=== PATIENT | female | born 1935 | race Caucasian/White ===

== ENCOUNTER → 2018-10-25 | Outpatient (CLI) | payer MEDICARE, BC ==
--- NOTE | 2018-10-25 14:50 | CT ---
EXAMINATION TYPE: CT pelvis wo con DATE OF EXAM: 10/25/2018 COMPARISON: Whole-body bone scan July 06, 2015. Left hip x-ray February 25, 2015 HISTORY: Left hip pain assess for occult fracture per order. CT DLP: 667.4 mGycm Automated exposure control for dose reduction was used. Scanning of the pelvis is performed. FINDINGS: Osseous structures are demineralized. Metallic hardware from left hip arthroplasty is only partially imaged. This causes streak artifact somewhat limiting evaluation of pelvic structures. No acute fract ure or dislocation is seen. There is mild to moderate axial joint space loss in right hip with mild a cetabular spurring. Sacroiliac joints are felt symmetric and within normal limits with vacuum disc ph enomenon. Pubic symphysis shows mild to moderate narrowing and subchondral cystic change. No suspicio us widening is present. Sacrum and coccyx are intact. Visualized lower lumbar spine shows multilevel moderate disc space narrowing with vacuum disc phenomenon and mild anterior spurring, facet arthropat hy is present. Diverticula are seen in the visualized left and sigmoid colon without CT evidence for acute diverticu litis. No suspicious bowel dilatation is seen. Uterus is surgically absent or markedly atrophic. No c oncerning pelvic fluid collection is seen. No suspicious pelvic adenopathy is noted. No groin hernia or adenopathy is seen. IMPRESSION: NO ACUTE FRACTURE OR DISLOCATION IN PELVIS IS PRESENT
== END ==
LOC: RADCTMAIN 14:14
PROVIDERS: ATTEND Physical Medicine & Rehabilitation
DX: M25.552 Pain in left hip (principal)
CPT/HCPCS: 72192

== ENCOUNTER 2020-07-19 07:51 | Day surgery (SDC) | payer MEDICARE, BC ==
[2020-07-18 08:55] VITALS: BMI 28.5
[~2020-07-19 07:51] MED LIST: ALPRAZolam 0.25 MG TAB PO PRN; ALPRAZolam 0.5 MG TAB PO PRN; ASPIRIN 325 MG TAB PO STA; ATORVASTATIN 80 MG TAB PO STA; NITROGLYCERIN SL TABS 0.4 MG TAB SUBLINGUAL PRN; SODIUM CHLORIDE 0.9% 1,000 ML in EMPTY BAG 1 BAG IV ONE
[2020-07-19] MEDS ORDERED: SODIUM CHLORIDE 0.9% 1,000 ML IV ONE (08:15)
[2020-07-19 08:42] VITALS: TEMP 97.8
[2020-07-19 09:14] LABS: Basophils # (A) 0.1 k/uL (0-0.2); Basophils % (A) 1 %; Eosinophils # (A) 0.1 k/uL (0-0.7); Eosinophils % (A) 1 %; HGB 14.3 gm/dL (11.4-16.0); Lymphocytes # (A) 1.6 k/uL (1.0-4.8); Lymphocytes % (A) 25 %; MCH 30.6 pg (25.0-35.0); MCHC 33.2 g/dL (31.0-37.0); MCV 92.1 fL (80.0-100.0); Mean Platelet Volume 8.2; Monocytes # (A) 0.4 k/uL (0-1.0); Monocytes % (A) 6 %; Neutrophils # (A) 4.3 k/uL (1.3-7.7); Neutrophils % (A) 66 %; Platelet Count 185 k/uL (150-450); RBC 4.67 m/uL (3.80-5.40); RDW 13.1 % (11.5-15.5); WBC 6.6 k/uL (3.8-10.6)
[2020-07-19 09:24] LABS: Calcium 9.6 mg/dL (8.4-10.2); Potassium 3.9 mmol/L (3.5-5.1)
[2020-07-19] MEDS ORDERED: MIDAZOLAM 2 MG/2 ML VIAL IV ONE (10:46)
[2020-07-19] MEDS ORDERED: fentaNYL (PF) 50 MCG/ML 2 ML AMP IV ONE (10:46)
[2020-07-19] MEDS ORDERED: LIDOCAINE 1% INJ 10MG/ML (20 ML MDV) SQ ONE ×2 (10:48→10:58)
[2020-07-19] MEDS ORDERED: VERAPAMIL SYRINGE (5 MG/10 ML) INTRAARTER ONE (10:52)
--- NOTE | 2020-07-19 11:33 | P.CARDCATH ---
Date of Procedure: 07/19/20 Preoperative Diagnosis: Impressions sweating and shortness of breath, positive stress test Postoperative Diagnosis: Borderline lesion in the mid LAD Procedure(s) Performed: Left heart catheterization without left ventriculography Description of Procedure: HISTORY: This is a 84-year-old female with history of hypertension and SVT has been experiencing exertional sweating and palpitations. Patient had a stress correlation study which showed evidence of ischemia in the first septal and lateral wall area. Patient is advised to have cardiac catheterization for definitive diagnosis CONSENT:I have discussed the risks, benefits and alternative therapies for the above-mentioned procedure and for both sedation/analgesia as well as necessary blood product administration, if indicated, as they pertain to this patient. The patient has indicated understanding and acceptance of the risks and procedures discussed. PROCEDURE: Patient was brought to the lab in a fasting state. Patient was given some IV sedation. The right wrist is infiltrated with lidocaine. Right radial artery was entered using Seldinger technique and a 6-Slovenian introducer sheath was advanced. Attempts were made to advance the wire resulted in difficulties. The procedure was abandoned and the was performed from the groin. The right groin is infiltrated with lidocaine and right femoral artery was entered using Seldinger technique. A 6-Slovenian catheter was left in place and selective coronary arteriography was performed. Patient tolerated the procedure well. No immediate complications were noted and patient is waiting to have FFR to assess the significance of the lesion in the mid LAD Conscious Sedation: Versed 0.5mg Fentanyl 12.5 g Duration 28minutes HEMODYNAMICS: The aortic pressure is 112/40. Left ventricle end-diastolic p ressure is 20. There was no gradient across the aortic valve SELECTIVE CORONARY ARTERIOGRAPHY: LEFT MAIN: Normal length and free of occlusive disease THE LEFT ANTERIOR DESCENDING CORONARY ARTERY: . This is a good caliber vessel giving rise good-sized diagonal branch. After origin of the diagonal branch. The LAD has diffuse disease with areas of about 60-70% stenosis 2. THE LEFT CIRCUMFLEX AND IS CORONARY ARTERY: This is a good caliber vessel free of any significant occlusive disease THE RIGHT CORONARY ARTERY: . This is a good caliber vessel giving rise good-sized PDA and PLV. Free of any occlusive disease LEFT VENTRICULOGRAPHY: . Not performed FINAL IMPRESSION: . Borderline lesion in the LAD beyond the origin of the diagonal branch PLAN: . FFR to assess the significance it. If it is significant, consider stent placement PROGNOSIS: Fair
[2020-07-19] MEDS ORDERED: IOPAMIDOL-370 125ML BTL INJ ONE (11:53)
[2020-07-19] MEDS ORDERED: RX INFO: IV CONTRAST WAS GIVEN 1 EACH MISC MISCELLANE PRN (12:06)
[2020-07-19 16:26] VITALS: PULSE 55; RESP 18
[2020-07-19 17:14] VITALS: BP 118/72
--- NOTE | 2020-07-19 21:33 | P.PRCINT ---
Percutaneous Coronary Int. - Percutaneous Coronary Intervention Percutaneous Coronary Intervention: Description of Procedure: Procedures performed: Left coronary angiography, iFR of mid LAD. INDICATION: SOB with dyspnea on exertion HISTORY: Patient is a 84 year old female who has been experiencing MAYES and had a stress test which was concerning for lateral ischemia. She had a diagnostic catheterization which showed moderate 50% LAD stenosis and therefore I was asked to perform iFR of the LAD. PROCEDURE: After the risks, benefits and alternatives of the above mentioned procedure explained in detail with the patient, informed consent was obtained. Patient was already in the catheterization lab and prepped and draped in usual fashion. A 6Fr sheath had already been placed in the right femoral artery. A decision was made to iFR the LAD. A 6Fr CLS 3.5 guide catheter was used to engage the left main. A 0.014 iFR pressure guide wire was advanced into the left main and normalized. The wire was then advanced distal to the lesion and iFR was measured at 0.91. The wire and the guide were then removed. A right femoral angiogram showed inadequate anatomy for closure and therefore the sheath was pulled and manual pressure was held with hemostasis achieved. The patient tolerated the procedure well. Patient was transported back to the post catheterization holding area in stable condition. Conscious Sedation: Patient was monitored under the direct supervision of vision of myself for conscious sedation using Versed and fentanyl for a total duration of 16 minutes HEMODYNAMICS: Aortic pressure 134/76 SELECTIVE CORONARY ANGIOGRAPHY: LEFT MAIN: The left main is a large caliber vessel which bifurcates into the LAD and circumflex. There is no significant stenosis. LEFT ANTERIOR DESCENDING CORONARY ARTERY: LAD is a large caliber vessel which wraps around to the apex. There is a mid LAD 50% stenosis. LEFT CIRCUMFLEX CORONARY ARTERY: Left circumflex is a moderate caliber vessel with no significant disease. RIGHT CORONARY ARTERY: Was not imaged, see diagnostic catheterization for full details. Conclusions: 1. Coronary artery disease as described above with iFR of mid LAD being normal at 0.91. Plan: 1. Aggressive risk factor modification per most recent ACC/AHA guidelines. 2. Followup with primary tire service technician in 1-2 weeks.
== END 2020-07-19 17:14 | disposition home or self-care (01) ==
LOC: CATHCVL 07:51
PROVIDERS: ATTEND Internal Medicine Cardiovascular Disease
DX: I25.10 Atherosclerotic heart disease of native coronary artery without angina pectoris (principal); R94.39 Abnormal result of other cardiovascular function study; R61 Generalized hyperhidrosis; R06.02 Shortness of breath; R00.2 Palpitations; R07.89 Other chest pain; I47.1 Supraventricular tachycardia; I10 Essential (primary) hypertension; E66.9 Obesity, unspecified; Z79.899 Other long term (current) drug therapy; Z68.29 Body mass index [BMI] 29.0-29.9, adult
CPT/HCPCS: 93571; 93458; 80048; 85025; C1887; C1769 ×4; C1894 ×2; J2250; J2001; J3010; J1644; Q9967

== ENCOUNTER 2024-01-08 18:24 | Inpatient (IN) | payer MEDICARE, BC ==
[2024-01-08] MEDS: MORPHINE SULFATE 4 MG/ML SYRINGE IM STA (20:01)
--- NOTE | 2024-01-08 21:02 | XR ---
EXAMINATION TYPE: XR Hip LT and AP Pelvis DATE OF EXAM: 01/08/2024 8:14 PM CLINICAL INDICATION:Female, 88 years old with history of fall, pain; PHH COMPARISON: None. TECHNIQUE: The left hip was examined in the frontal and lateral projections and a AP pelvis. FINDINGS: Bones appear slightly demineralized. This and body habitus limits assessment. Lucencies consistent with acute minimally displaced fractures of the left superior and inferior pubic rami. Pelvis otherwise appears intact. Mild right hip arthropathy. 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 No evidence of hardware failure or perihardware lucency. No proximal femoral fr acture. No dislocation. Partially seen degenerative changes of the lower lumbar spine with mild apex right curvature and fixa tion hardware at L3 and L2. IMPRESSION: 1. Acute, mildly displaced left superior and inferior pubic rami fractures. 2. Unremarkable left hip arthroplasty.
[2024-01-08] MEDS: MORPHINE SULFATE 4 MG/ML SYRINGE IVP STA (21:40)
[2024-01-08] MEDS ORDERED: NALOXONE 0.4 MG/ML 1 ML VIAL IV PRN (21:41)
--- NOTE | 2024-01-08 21:41 | ED ---
Fall HPI - General Chief Complaint: Fall Stated Complaint: Fall Time Seen by Provider: 01/08/24 19:00 Source: patient - History of Present Illness Initial Comments: 88-year-old female presents to the emergency department after she had a fall. States that she was coming into the house from the garage. Her leg gave out on her and she fell onto her left hip. She does have history of previous hip replacement by a surgeon who is now retired. She is concerned about the hip hardware. She denies any numbness, tingling or weakness into her extremities. She denies hitting her head. No loss of consciousness. Patient was offered pain medications by EMS however she refused at the time. She denies any knee or ankle pain. No other alleviating, precipitating or modifying factors - Related Data Home Medications Medication Instructions Recorded Confirmed atenoloL [Tenormin] 25 mg PO DAILY 10/10/15 01/08/24 Losartan Potassium 100 mg PO DAILY 07/18/20 01/08/24 hydroCHLOROthiazide 25 mg PO DAILY 07/18/20 01/08/24 Acetaminophen Tab [Tylenol Tab] 1,000 mg PO DAILY 01/08/24 01/08/24 Aspirin EC [Ecotrin Low Dose] 81 mg PO HS 01/08/24 01/08/24 Biotin 2,500 mcg PO HS 01/08/24 01/08/24 Isosorbide Mononitrate ER [Imdur] 30 mg PO DAILY 01/08/24 01/08/24 Rosuvastatin [Crestor] 10 mg PO HS 01/08/24 01/08/24 Allergies Allergy/AdvReac Type Severity Reaction Status Date / Time amoxicillin trihydrate Allergy Unknown Verified 01/08/24 20:42 [From Amoxil] levofloxacin [From Levaquin] AdvReac Unknown Verified 01/08/24 20:42 Review of Systems ROS Statement: Those systems with pertinent positive or pertinent negative responses have been documented in the HPI. ROS Other: All systems not noted in ROS Statement are negative. Past Medical History Past Medical History: Deep Vein Thrombosis (DVT), Hypertension, Osteoarthritis (OA), Pneumonia Additional Past Medical History / Comment(s): Hx DVT right leg in -unknown cause. History of Any Multi-Drug Resistant Organisms: None Reported Past Surgical History: Back Surgery, Hysterectomy, Joint Replacement, Tonsillectomy Additional Past Surgical History / Comment(s): Total left knee replacement, left hip replacement, TIMMY CATARACTS, RECTOCELE REPAIR. Past Anesthesia/Blood Transfusion Reactions: No Reported Reaction Past Psychological History: No Psychological Hx Reported Smoking Status: Never smoker Past Alcohol Use History: None Reported Past Drug Use History: None Reported - Past Family History Mother Family Medical History: Cancer Additional Family Medical History / Comment(s): KIDNEY CANCER. General Exam Limitations: no limitations General appearance: alert, in no apparent distress Head exam: Present: atraumatic, normocephalic, normal inspection Eye exam: Present: normal appearance, PERRL, EOMI. Absent: scleral icterus, conjunctival injection, periorbital swelling ENT exam: Present: normal exam, mucous membranes moist Neck exam: Present: normal inspection. Absent: tenderness, meningismus, lymphadenopathy Respiratory exam: Present: normal lung sounds bilaterally. Absent: respiratory distress, wheezes, rales, rhonchi, stridor Cardiovascular Exam: Present: regular rate, normal rhythm, normal heart sounds. Absent: systolic murmur, diastolic murmur, rubs, gallop, clicks GI/Abdominal exam: Present: soft, normal bowel sounds. Absent: distended, tenderness, guarding, rebound, rigid Extremities exam: Present: tenderness (To palpation of the left hip. She cannot flex at the left hip due to pain. She has intact DP and PT pulses. Intact sensation over the medial, lateral and dorsal aspects of the bilateral lower extremities. Compartments are soft), normal capillary refill. Absent: pedal edema, joint swelling, calf tenderness Back exam: Present: normal inspection Neurological exam: Present: alert, oriented X3, CN II-XII intact Psychiatric exam: Present: normal affect, normal mood Skin exam: Present: warm, dry, intact, normal color. Absent: rash Course Vital Signs 01/08/24 01/08/24 01/08/24 18:28 22:06 22:28 Temperature 97.6 F 98.2 F Pulse Rate 63 68 66 Respiratory 18 16 16 Rate Blood Pressure 165/68 121/67 O2 Sat by Pulse 96 95 Oximetry 01/08/24 23:00 Temperature Pulse Rate 64 Respiratory 14 Rate Blood Pressure O2 Sat by Pulse Oximetry Medical Decision Making - Medical Decision Making Was pt. sent in by a medical professional or institution (, PA, BUTTONHOLE MACHINE OPERATOR, urgent care, hospital, or senior care...) When possible be specific @ -No Did you speak to anyone other than the patient for history (EMS, parent, family, police, friend...)? What history was obtained from this source @ -Spoke with EMS for history Did you review nursing and triage notes (agree or disagree)? Why? @ -I reviewed and agree with nursing and triage notes Were old charts reviewed (outside hosp., previous admission, EMS record, old EKG, old radiological studies, urgent care reports/EKG's, senior care records)? Report findings @ -No old charts were reviewed Differential Diagnosis (chest pain, altered mental status, abdominal pain women, abdominal pain men, vaginal bleeding, weakness, fever, dyspnea, syncope, headache, dizziness, GI bleed, back pain, seizure, CVA, palpatations, mental health, musculoskeletal)? @ -Differential Musculoskeletal Muscular strain, contusion, ligament sprain, fracture, arthritis, septic arthritis, bursitis, cellulitis, muscle spasm, nerve compression, DVT, arterial occlusion, herpes zoster, electrolyte abnormality, tumor.... This is not meant to be in all inclusive list EKG interpreted by me (3pts min.). @ -Not done X-rays interpreted by me (1pt min.). @ -Yes and demonstrates acute pubic bone fractures CT interpreted by me (1pt min.). @ -None done U/S interpreted by me (1pt. min.). @ -None done What testing was considered but not performed or refused? (CT, X-rays, U/S, labs)? Why? @ -None What meds were considered but not given or refused? Why? @ -None Did you discuss the management of the patient with other professionals (professionals i.e. , PA, BUTTONHOLE MACHINE OPERATOR, lab, RT, psych nurse, social work professor, plug cutter, teacher, security officer, showcase trimmer)? Give summary @ -Spoke with Tanner Candelario. He was agreeable to admission if medicine refused Was smoking cessation discussed for >3mins.? @ -No Was critical care preformed (if so, how long)? @ -No Were there social determinants of health that impacted care today? How? (Homelessness, low income, unemployed, alcoholism, drug addiction, transportation, low edu. Level, literacy, decrease access to med. care, skilled nursing, rehab)? @ -No Was there de-escalation of care discussed even if they declined (Discuss DNR or withdrawal of care, Hospice)? DNR status @ -No What co-morbidities impacted this encounter? (DM, HTN, Smoking, COPD, CAD, Cancer, CVA, ARF, Chemo, Hep., AIDS, mental health diagnosis, sleep apnea, mor bid obesity)? @ -None Was patient admitted / discharged? Hospital course, mention meds given and ro hoopa, prescriptions, significant lab abnormalities, going to OR and other pertinent info. @ -Upon arrival patient was seen and evaluated in room 33. Thorough history and physical exam was performed. Patient was given 4 mg of IM morphine. X-ray was performed which demonstrates superior and inferior pubic fractures. Patient was then given a dose of Dilaudid. Continues to have pain and is not am bulatory. Because of this I did recommend admission for pain control. Spoke with Tanner Palomino. Does recommend CT of her pelvis. Was agreeable to admission if medicine refused. States that the patient is nonsurgical. I called and spoke with Tyler from [facility] who did agree to the admission. Orthopedics will be placed on consult Undiagnosed new problem with uncertain prognosis? @ -No Drug Therapy requiring intensive monitoring for toxicity (Heparin, Nitro, Insulin, Cardizem)? @ -No Were any procedures done? @ -No Diagnosis/symptom? @ -Acute fall, acute left hip pain, acute superior and inferior pubic rami fractures Acute, or Chronic, or Acute on Chronic? @ -Acute Uncomplicated (without systemic symptoms) or Complicated (systemic symptoms)? @ -Complicated Side effects of treatment? @ -No Exacerbation, Progression, or Severe Exacerbation? @ -No Poses a threat to life or bodily function? How? (Chest pain, [place], [place], pneumonia, PE, COPD, DKA, ARF, appy, cholecystitis, CVA, Diverticulitis, Homicidal, Suicidal, threat to staff... and all critical care pts) @ -No - Lab Data Result diagrams: 01/08/24 21:37 01/08/24 21:37 Lab Results 01/08/24 01/08/24 Range/Units 21:37 21:37 WBC 11.7 H (3.8-10.6) k/uL RBC 4.11 (3.80-5.40) m/uL Hgb 12.8 (11.4-16.0) gm/dL Hct 39.6 (34.0-46.0) % MCV 96.4 (80.0-100.0) fL MCH 31.2 (25.0-35.0) pg MCHC 32.4 (31.0-37.0) g/dL RDW 14.1 (11.5-15.5) % Plt Count 141 L (150-450) k/uL MPV 8.6 Neutrophils % 85 % Lymphocytes % 11 % Monocytes % 3 % Eosinophils % 0 % Basophils % 0 % Neutrophils # 9.9 H (1.3-7.7) k/uL Lymphocytes # 1.3 (1.0-4.8) k/uL Monocytes # 0.4 (0-1.0) k/uL Eosinophils # 0.1 (0-0.7) k/uL Basophils # 0.0 (0-0.2) k/uL Sodium 138 (137-145) mmol/L Potassium 4.1 (3.5-5.1) mmol/L Chloride 105 (98-107) mmol/L Carbon Dioxide 26 (22-30) mmol/L Anion Gap 7 mmol/L BUN 27 H (7-17) mg/dL Creatinine 0.92 (0.52-1.04) mg/dL Est GFR (CKD-EPI)AfAm 65 (>60 ml/min/1.73 sqM) Est GFR (CKD-EPI)NonAf 57 (>60 ml/min/1.73 sqM) Glucose 109 H (74-99) mg/dL Calcium 9.6 (8.4-10.2) mg/dL Total Bilirubin 1.0 (0.2-1.3) mg/dL AST 33 (14-36) U/L ALT 27 (4-34) U/L Alkaline Phosphatase 80 (38-126) U/L Total Protein 6.3 (6.3-8.2) g/dL Albumin 3.9 (3.5-5.0) g/dL Disposition Clinical Impression: Fall, Inferior pubic ramus fracture, Fracture of superior pubic ramus Disposition: ADMITTED IP TO THIS [facility] Condition: Stable Is patient prescribed a controlled substance at d/c from ED?: No Time of Disposition: 21:40 Decision to Admit Reason: Admit from EC Decision Date: 01/08/24 Decision Time: 21:40
[2024-01-08 21:53] LABS: Basophils % (A) 0 %; Eosinophils # (A) 0.1 k/uL (0-0.7); Eosinophils % (A) 0 %; HCT 39.6 % (34.0-46.0); HGB 12.8 gm/dL (11.4-16.0); Lymphocytes # (A) 1.3 k/uL (1.0-4.8); Lymphocytes % (A) 11 %; MCH 31.2 pg (25.0-35.0); MCHC 32.4 g/dL (31.0-37.0); MCV 96.4 fL (80.0-100.0); Mean Platelet Volume 8.6; Monocytes # (A) 0.4 k/uL (0-1.0); Monocytes % (A) 3 %; Neutrophils # (A) 9.9 k/uL (1.3-7.7); Neutrophils % (A) 85 %; Platelet Count 141 k/uL (150-450); RBC 4.11 m/uL (3.80-5.40); RDW 14.1 % (11.5-15.5); WBC 11.7 k/uL (3.8-10.6)
[2024-01-08] MEDS: HYDROmorphone 0.5 MG/0.5 ML SYRINGE IVP STA (22:01)
[2024-01-08] MEDS: KETOROLAC 15 MG/ML 1 ML VIAL IVP STA (22:02)
[2024-01-08 22:12] LABS: ALT 27 U/L (4-34); AST 33 U/L (14-36); African American GFR (CKD) 65 (>60 ml/min/1.73 sqM); Albumin 3.9 g/dL (3.5-5.0); Alkaline Phosphatase 80 U/L (38-126); Anion Gap 7 mmol/L; Blood Urea Nitrogen 27 mg/dL (7-17); Calcium 9.6 mg/dL (8.4-10.2); Carbon Dioxide 26 mmol/L (22-30); Chloride 105 mmol/L (98-107); Glucose 109 mg/dL (74-99); Non-African American GFR(CKD) 57 (>60 ml/min/1.73 sqM); Potassium 4.1 mmol/L (3.5-5.1); Sodium 138 mmol/L (137-145); Total Protein 6.3 g/dL (6.3-8.2)
--- NOTE | 2024-01-08 23:10 | CT ---
EXAMINATION TYPE: CT pelvis wo con CT DLP: 712.5 mGycm, Automated exposure control for dose reduction was used. DATE OF EXAM: 01/08/2024 10:06 PM COMPARISON: Same day pelvis and left hip radiographs. CT pelvis 10/25/2018 CLINICAL INDICATION:Female, 88 years old with history of pubic fractures; Fall, pubic fx's on prior X R. TECHNIQUE: Noncontrast CT of the pelvis was performed with multiplanar reformats generated. 3-D surface rendered rotational images of the bones generated on a remote workstation. Contrast used: mL of , (none if empty) Oral contrast used: without Oral Contrast (none if empty) FINDINGS: Osseous mineralization appears somewhat diminished. Small sclerotic density in the proximal right fem ur likely bone island. No destructive osseous lesion is seen. Partially seen degenerative changes of the lower lumbar spine. Acute essentially nondisplaced fracture extending through the left sacral ala. This may or may not ex tend to the SI joint but there is no evidence of joint space widening. Iliac bones are intact. Acute, mildly displaced fracture of the left superior pubic ramus. This appears mildly comminuted tow ards the symphysis, with some linear extension laterally along the ramus. Acute nondisplaced fractures of the left inferior pubic ramus, x2. One of these appears closer to th e pubic symphysis, the other is about 3 cm more lateral. Left hip arthroplasty appears normally articulating with the bony acetabulum, which appears intact. N o evidence of hardware failure or perihardware lucency. There are a few dystrophic soft tissue calcifications about the left hip with overlying soft tissue c hanges likely result of the previous hip replacement, but superimposed contusion would be difficult t o exclude. The right hemipelvis appears intact. There are mild degenerative changes of the pubic symphysis and r ight hip. No hip fracture or dislocation is seen. Within the pelvis, no free fluid is seen. The bladder appears grossly intact, there is mild mass effe ct upon its left mid to inferior aspect due to the extraperitoneal hematoma. There are multiple distal colonic diverticuli without signs of diverticulitis. No adenopathy visualiz ed. Normal appendix. Uterus and ovaries not seen, correlate with surgical history. Asymmetric density about the left pubic bone fractures, likely involving the musculature, consistent with mild to moderate extraperitoneal hematoma. IMPRESSION: 1. Acute nondisplaced fracture of the left sacral ala. This may or may not extend to the SI joint bu t there is no evidence of joint space widening. 2. Acute, mildly displaced fracture of the left superior pubic ramus. 3. Acute nondisplaced fractures of the left inferior pubic ramus, in two locations. 4. Left hip arthroplasty, appears intact. No evidence of acetabular fracture or hip dislocation. 5. Asymmetric density about the left pubic bone fractures, consistent with mild to moderate extraper itoneal hematoma. 6. Mild mass effect on the left side of the bladder, related to the extraperitoneal hematoma.
[2024-01-09] MEDS: HYDROcodone/APAP 5-325MG 1 EACH TAB PO PRN (00:15)
[2024-01-09] MEDS: HYDROmorphone 2 MG TAB PO PRN (03:14)
[2024-01-09] MEDS: KETOROLAC 15 MG/ML 1 ML VIAL IVP PRN (04:54)
[2024-01-09 06:07] LABS: Glucose,Whole Blood 139 mg/dL (70-110)
[2024-01-09] MEDS ORDERED: ACETAMINOPHEN TAB 325 MG TAB PO PRN (08:55)
[2024-01-09] MEDS: ISOSORBIDE MONONITRATE ER 30 MG TAB.ER.24H PO SCH (09:20)
[2024-01-09] MEDS: atenoloL 25 MG TAB PO SCH (09:21)
[2024-01-09] MEDS: PANTOPRAZOLE 40 MG TABLET PO SCH (09:21)
[2024-01-09 11:22] LABS: Glucose,Whole Blood 144 mg/dL (70-110)
--- NOTE | 2024-01-09 11:36 | P.HPIM ---
History of Present Illness Patient is a pleasant female admitted after a mechanical fall, patient is unsure how she fell. Patient denies any syncopal episode. Patient is found to have nondisplaced fracture of the sacral mickie, nondisplaced fracture of the superior and inferior pubic rami. Patient is nonsurgical at this time. Physical therapy and Occupational Therapy were consulted patient was complaining of occasional palpitations. Patient still has some pain whenever she moves otherwise okay. REVIEW OF SYSTEMS: CONSTITUTIONAL: No fever, no malaise, no fatigue. HEENT: No recent visual problems or hearing problems. Denied any sore throat. CARDIOVASCULAR: No chest pain, orthopnea, PND, no palpitations, no syncope. PULMONARY: No shortness of breath, no cough, no hemoptysis. GASTROINTESTINAL: No diarrhea, no nausea, no vomiting, no abdominal pain. NEUROLOGICAL: No headaches, no weakness, no numbness. HEMATOLOGICAL: Denies any bleeding or petechiae. GENITOURINARY: Denies any burning micturition, frequency, or urgency. MUSCULOSKELETAL/RHEUMATOLOGICAL: Pain in the pelvic area as mentioned above ENDOCRINE: Denies any polyuria or polydipsia. The rest of the 14-point review of systems is negative. PHYSICAL EXAMINATION: GENERAL: The patient is alert and oriented x3, not in any acute distress. Well developed, well nourished. HEENT: Pupils are round and equally reacting to light. EOMI. No scleral icterus. No conjunctival pallor. Normocephalic, atraumatic. No pharyngeal erythema. No thyromegaly. CARDIOVASCULAR: S1 and S2 present. No murmurs, rubs, or gallops. PULMONARY: Chest is clear to auscultation, no wheezing or crackles. ABDOMEN: Soft, nontender, nondistended, normoactive bowel sounds. No palpable organomegaly. MUSCULOSKELETAL: Deferred to orthopedic surgery EXTREMITIES: No cyanosis, clubbing, or pedal edema. NEUROLOGICAL: Gross neurological examination did not reveal any focal deficits. SKIN: No rashes. Assessment and plan -Mechanical fall and pelvic fracture: Continue with present pain medications considering her age we will try and avoid opiates patient is on Toradol Pepcid, [place], low-dose Dilaudid on as-needed basis along with GI prophylaxis -Generalized deconditioning and fall physical therapy occupational therapy evaluation patient probably will need subacute rehabilitation placement -Hypertension patient is on 2 blood pressure medications but is well-controlled just on atenolol actually bit hypotensive may be secondary to pain medications. -History of DVT in the past and patient is presently not on any anticoagulation will be started on DVT prophylaxis with Lovenox DVT prophylaxis: As mentioned above Past Medical History Past Medical History: Deep Vein Thrombosis (DVT), Hypertension, Osteoarthritis (OA), Pneumonia Additional Past Medical History / Comment(s): Hx DVT right leg in -unknown cause. History of Any Multi-Drug Resistant Organisms: None Reported Past Surgical History: Back Surgery, Hysterectomy, Joint Replacement, Tonsillectomy Additional Past Surgical History / Comment(s): Total left knee replacement, left hip replacement, TIMMY CATARACTS, RECTOCELE REPAIR. Past Anesthesia/Blood Transfusion Reactions: No Reported Reaction Past Psychological History: No Psychological Hx Reported Additional Psychological History / Comment(s): Pt resides with her spouse. She uses a cane to ambulate. She drives. Smoking Status: Never smoker Past Alcohol Use History: None Reported Past Drug Use History: None Reported - Past Family History Mother Family Medical History: Cancer Additional Family Medical History / Comment(s): KIDNEY CANCER. Medications and Allergies Home Medications Medication Instructions Recorded Confirmed Type atenoloL [Tenormin] 25 mg PO DAILY 10/10/15 01/08/24 History Losartan Potassium 100 mg PO DAILY 07/18/20 01/08/24 History hydroCHLOROthiazide 25 mg PO DAILY 07/18/20 01/08/24 History Acetaminophen Tab [Tylenol Tab] 1,000 mg PO DAILY 01/08/24 01/08/24 History Aspirin EC [Ecotrin Low Dose] 81 mg PO HS 01/08/24 01/08/24 History Biotin 2,500 mcg PO HS 01/08/24 01/08/24 History Isosorbide Mononitrate ER [Imdur] 30 mg PO DAILY 01/08/24 01/08/24 History Rosuvastatin [Crestor] 10 mg PO HS 01/08/24 01/08/24 History Allergies Allergy/AdvReac Type Severity Reaction Status Date / Time amoxicillin trihydrate Allergy Unknown Verified 01/08/24 20:42 [From Amoxil] levofloxacin [From Levaquin] AdvReac Unknown Verified 01/08/24 20:42 Physical Exam Vitals: Vital Signs Temp Pulse Pulse Resp BP BP Pulse Ox 01/09/24 07:19 98.1 F 62 16 119/53 93 L 01/09/24 00:31 98.0 F 75 20 155/69 97 01/08/24 23:00 64 14 01/08/24 22:28 98.2 F 66 16 121/67 95 01/08/24 22:06 68 16 01/08/24 18:28 97.6 F 63 18 165/68 96 Intake and Output 01/08/24 01/09/24 01/09/24 22:59 06:59 14:59 Intake Total 480 Output Total 200 Balance 280 Intake: Oral 480 Output: Urine 200 Other: Voiding Method External Catheter # Voids 1 # Bowel Movements 1 Weight 97.522 kg 97.522 kg Results CBC & Chem 7: 01/08/24 21:37 01/08/24 21:37 Labs: Abnormal Lab Results - Last 24 Hours (Table) 01/08/24 01/08/24 01/09/24 Range/Units 21:37 21:37 06:03 WBC 11.7 H (3.8-10.6) k/uL Plt Count 141 L (150-450) k/uL Neutrophils # 9.9 H (1.3-7.7) k/uL BUN 27 H (7-17) mg/dL Glucose 109 H (74-99) mg/dL POC Glucose (mg/dL) 139 H (70-110) mg/dL 01/09/24 Range/Units 11:20 WBC (3.8-10.6) k/uL Plt Count (150-450) k/uL Neutrophils # (1.3-7.7) k/uL BUN (7-17) mg/dL Glucose (74-99) mg/dL POC Glucose (mg/dL) 144 H (70-110) mg/dL Thrombosis Risk Factor Assmnt - Choose All That Apply Any of the Below Risk Factors Present?: Yes Each Factor Represents 1 point: Medical pt on bed rest, Obesity (BMI >25) Other Risk Factors: Yes Each Risk Factor Represents 3 Points: Age 75 years or older, History of DVT/PE Other congenital or acquired thrombophilia - If yes, enter type in comment: Yes Each Risk Factor Represents 5 Points: Hip, pelvis, or leg fracture (< 1 month) Thrombosis Risk Factor Assessment Total Risk Factor Score: 13 Thrombosis Risk Factor Assessment Level: High Risk
--- NOTE | 2024-01-09 19:36 | P.CNOR ---
History of Present Illness - [facility] Consult date: 01/09/24 Consult reason: other ( left-sided pelvic fracture) History of present illness: patient is an 88-year-old female who presented to [facility] on 01/08/2024 after falling at home. After being brought into the hospital, multiple imaging and lab tests were done. Images did demonstrate initial left-sided superior and inferior pubic rami fracture. I was consulted by the emergency room staff regarding the patient, I advised ordering a CT scan for further evaluation of the pelvis. It was determined that she had a left-sided LC type I fracture. Patient was admitted under internal medicine, orthopedic team was placed on consult for recommendations. Patient was evaluated today at bedside, she is resting comfortably she appears to be in no acute distress. She notes most pain in the pelvic region when ambulating. Patient has a previous left hip hemiarthroplasty that was done many years ago, she also has a previous left total knee arthroplasty. She denies any groin pain at this time, she has no knee pain at this time, she denies any foot or ankle pain. She denies any discomfort to the right lower extremity or bilateral upper extremities. She denies hitting her head during the fall. She denies any acute back pain at this time. Patient normally is very independent, she lives at home with her . Patient will occasionally utilize a walker for ambulation. Review of Systems Constitutional: Reports as per [facility] Past Medical History Past Medical History: Deep Vein Thrombosis (DVT), Hypertension, Osteoarthritis (OA), Pneumonia Additional Past Medical History / Comment(s): Hx DVT right leg in -unknown cause. History of Any Multi-Drug Resistant Organisms: None Reported Past Surgical History: Back Surgery, Hysterectomy, Joint Replacement, Tonsillectomy Additional Past Surgical History / Comment(s): Total left knee replacement, left hip replacement, TIMMY CATARACTS, RECTOCELE REPAIR. Past Anesthesia/Blood Transfusion Reactions: No Reported Reaction Past Psychological History: No Psychological Hx Reported Additional Psychological History / Comment(s): Pt resides with her spouse. She uses a cane to ambulate. She drives. Smoking Status: Never smoker Past Alcohol Use History: None Reported Past Drug Use History: None Reported - Past Family History Mother Family Medical History: Cancer Additional Family Medical History / Comment(s): KIDNEY CANCER. Medications and Allergies Home Medications Medication Instructions Recorded Confirmed Type atenoloL [Tenormin] 25 mg PO DAILY 10/10/15 01/08/24 History Losartan Potassium 100 mg PO DAILY 07/18/20 01/08/24 History hydroCHLOROthiazide 25 mg PO DAILY 07/18/20 01/08/24 History Acetaminophen Tab [Tylenol Tab] 1,000 mg PO DAILY 01/08/24 01/08/24 History Aspirin EC [Ecotrin Low Dose] 81 mg PO HS 01/08/24 01/08/24 History Biotin 2,500 mcg PO HS 01/08/24 01/08/24 History Isosorbide Mononitrate ER [Imdur] 30 mg PO DAILY 01/08/24 01/08/24 History Rosuvastatin [Crestor] 10 mg PO HS 01/08/24 01/08/24 History Allergies Allergy/AdvReac Type Severity Reaction Status Date / Time amoxicillin trihydrate Allergy Unknown Verified 01/08/24 20:42 [From Amoxil] levofloxacin [From Levaquin] AdvReac Unknown Verified 01/08/24 20:42 Physical Examination Left lower extremity: no open lesions or sores are visualized throughout the extremity, there is no excessive swelling or areas of erythema patient is nontender to the proximal femur, knee, lower leg, foot or ankle hip flexion along with internal and external rotation of the hip reproduce no pain, patient does have difficulty with straight leg raise compartments of the upper and lower leg are soft and compressible knee extension, knee flexion, plantarflexion, dorsiflexion, EHL, FHL are intact calf is soft, no tenderness with palpation dorsalis pedis pulses 2+ General orthopedic exam: No point tenderness is appreciated on exam of the bilateral upper extremities or right lower extremities. No focal deficits with range of motion to the bilateral upper extremities or right lower extremity. Logroll maneuver reproduces no pain in the groin, she is able to straight leg raise with minimal difficulty. Sensation to light touch is intact throughout the bilateral upper extremities and right lower extremity. Results - Labs Labs: Abnormal Lab Results - Last 24 Hours (Table) 01/08/24 01/08/24 01/09/24 Range/Units 21:37 21:37 06:03 WBC 11.7 H (3.8-10.6) k/uL Plt Count 141 L (150-450) k/uL Neutrophils # 9.9 H (1.3-7.7) k/uL BUN 27 H (7-17) mg/dL Glucose 109 H (74-99) mg/dL POC Glucose (mg/dL) 139 H (70-110) mg/dL 01/09/24 Range/Units 11:20 WBC (3.8-10.6) k/uL Plt Count (150-450) k/uL Neutrophils # (1.3-7.7) k/uL BUN (7-17) mg/dL Glucose (74-99) mg/dL POC Glucose (mg/dL) 144 H (70-110) mg/dL H & H 01/08/24 Range/Units 21:37 Hgb 12.8 (11.4-16.0) gm/dL Hct 39.6 (34.0-46.0) % Result Diagrams: 01/08/24 21:37 01/08/24 21:37 Assessment and Plan Assessment: LC type I fracture previous left hip hemiarthroplasty, stable status post fall from standing other medical comorbidities Plan: Imaging: AP pelvis along with left hip x-ray report and images were reviewed along with the pelvic CT. Images demonstrated an LC type I fracture, this to include fractures of the left-sided sacral ala, superior and inferior pubic rami. CT and x-ray demonstrated previous left hip hemiarthroplasty, components appear stable, no obvious lucencies Plan: I was able discussed the case, this to include both physical exam findings and imaging studies and my attending Dr. Rodriguez. No orthopedic surgical intervention is recommended at this time recommend conservative measures, this to include weight-bear as tolerated, icing to the region, use NSAIDs/Tylenol, low-dose oral narcotic and IV pain medication for severe pain PT/OT evaluation, weight-bear as tolerated with walker GI and DVT prophylaxis per primary medical service other medical specialty recommendations appreciated Discharge planning: Discussed with patient the need for possible subacute rehab if patient has a very difficult time with ADLs, will continue to monitor during hospital stay
[2024-01-09] MEDS: ATORVASTATIN 20 MG TAB PO SCH (19:50)
[2024-01-09] MEDS: ASPIRIN 81 MG PO SCH (19:50)
[2024-01-10] MEDS: ENOXAPARIN 40 MG/0.4 ML SYRINGE SQ SCH (09:13)
--- NOTE | 2024-01-10 12:10 | XR ---
EXAMINATION TYPE: XR shoulder complete LT DATE OF EXAM: 01/10/2024 11:52 AM CLINICAL INDICATION:Female, 88 years old with history of shoulder pain post fall; H COMPARISON: None TECHNIQUE: XR shoulder complete LT; examined in AP, internally rotated and scapular Y projections. FINDINGS: No evidence of acute osseous pathology, joint dislocation, or soft tissue swelling. The remaining po rtions of the visualized chest are unremarkable. Mild degeneration changes of the acromion, distal c lavicle with osteophyte formation. There is osteophyte formation of the glenoid and humeral head. The re is joint space narrowing of glenohumeral joint IMPRESSION: 1. No acute osseous pathology. 2. 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
--- NOTE | 2024-01-10 12:51 | P.PN ---
Subjective Progress Note Date: 01/10/24 Principal diagnosis: Left-sided pelvic fracture Patient evaluated today at bedside, she is resting comfortably. She notes most pain on the left side of the pelvis with movement. She was able to get to the edge of the bed and utilize the bedside commode yesterday with help. She denies headaches, lightheadedness, chest pain or shortness of breath Objective - Vital Signs Vital signs: Vital Signs Temp 98.7 F 01/10/24 07:36 Pulse 71 01/10/24 07:36 Resp 17 01/10/24 07:36 BP 118/63 01/10/24 07:36 Pulse Ox 91 L 01/10/24 07:36 FiO2 Intake & Output 01/09/24 01/10/24 01/10/24 18:59 06:59 18:59 Output Total 400 Balance -400 Output: Urine 400 Other: Voiding Method External Catheter # Voids 4 # Bowel Movements 1 - Exam Left lower extremity: no open lesions or sores are visualized throughout the extremity, there is no excessive swelling or areas of erythema patient is nontender to the proximal femur, knee, lower leg, foot or ankle hip flexion along with internal and external rotation of the hip reproduce no pain, patient does have difficulty with straight leg raise compartments of the upper and lower leg are soft and compressible knee extension, knee flexion, plantarflexion, dorsiflexion, EHL, FHL are intact calf is soft, no tenderness with palpation dorsalis pedis pulses 2+ General orthopedic exam: No point tenderness is appreciated on exam of the bilateral upper extremities or right lower extremities. No focal deficits with range of motion to the bilateral upper extremities or right lower extremity. Logroll maneuver reproduces no pain in the groin, she is able to straight leg raise with minimal difficulty. Sensation to light touch is intact throughout the bilateral upper extremities and right lower extremity. - Labs CBC & Chem 7: 01/08/24 21:37 01/08/24 21:37 Assessment and Plan Assessment: LC type I fracture previous left hip hemiarthroplasty, stable status post fall from standing other medical comorbidities Plan: Plan: Continue conservative measures, this to include weight-bear as tolerated, icing to the region, use NSAIDs/Tylenol, low-dose oral narcotic and IV pain medication for severe pain PT/OT evaluation, weight-bear as tolerated with walker GI and DVT prophylaxis per primary medical service other medical specialty recommendations appreciated Discharge planning: Recommending subacute rehab at discharge. Orthopedically patient remains stable, please contact our service with any questions regarding this patient Time with Patient: Less than 30
--- NOTE | 2024-01-10 14:46 | P.PN ---
Subjective Progress Note Date: 01/10/24 Patient is a pleasant female admitted after a mechanical fall, patient is unsure how she fell. Patient denies any syncopal episode. Patient is found to have nondisplaced fracture of the sacral mickie, nondisplaced fracture of the superior and inferior pubic rami. Patient is nonsurgical at this time. Physical therapy and Occupational Therapy were consulted patient was complaining of occasional palpitations. Patient still has some pain whenever she moves otherwise okay. 01/10/2024 Patient is evaluated today resting in bed. Patient has nondisplaced pubic fracture. Patient is pending PT and OT evaluation and possibly will need rehab on discharge. Patient is reporting no pain while at rest however is worried once she is up and ambulating with physical therapy what her pain level will be. She is urinating without difficulty. Had a bowel movement. 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 She is having low oxygen saturations but denying and shortness of breath and her lung sounds are equal and clear through out. Review of Systems Constitutional: Denied any fatigue denied any fever. Cardio vascular: denied any chest pain, palpitations Gastrointestinal: denied any nausea, vomiting, diarrhea Pulmonary: Denied any shortness of breath cough Neurologic denied any new focal deficits All inpatient medications were reviewed and appropriate changes in these medications as dictated in the interval history and assessment and plan. PHYSICAL EXAMINATION: GENERAL: The patient is alert and oriented x3, not in any acute distress. Well developed, well nourished. HEENT: Pupils are round and equally reacting to light. EOMI. No scleral icterus. No conjunctival pallor. Normocephalic, atraumatic. No pharyngeal erythema. No thyromegaly. CARDIOVASCULAR: S1 and S2 present. No murmurs, rubs, or gallops. PULMONARY: Chest is clear to auscultation, no wheezing or crackles. ABDOMEN: Soft, nontender, nondistended, normoactive bowel sounds. No palpable organomegaly. MUSCULOSKELETAL: Deferred to orthopedic surgery EXTREMITIES: No cyanosis, clubbing, or pedal edema. NEUROLOGICAL: Gross neurological examination did not reveal any focal deficits. SKIN: No rashes. Assessment and plan -Mechanical fall and pelvic fracture: Continue with present pain medications considering her age we will try and avoid opiates patient is on Toradol Pepcid, [place], low-dose Dilaudid on as-needed basis along with GI prophylaxis -Generalized deconditioning and fall physical therapy occupational therapy evaluation patient probably will need subacute rehabilitation placement -Hypertension patient is on 2 blood pressure medications but is well-controlled just on atenolol -History of DVT in the past and patient is presently not on any anticoagulation will be started on DVT prophylaxis with Lovenox DVT prophylaxis: As mentioned above Pending PT evaluation, ordered IS and will order a chest xray. The impression and plan of care has been dictated by Karen Singh, Nurse Practitioner as directed. Dr. Farzana MD I have performed a history and physical examination and medical decision making of this patient, discussed the same with the dictator, and agree with the dictators assessment and plan as written, documented as a scribe. Based on total visit time, I have performed more than 50% of this visit. Objective - Vital Signs Vital signs: Vital Signs Temp 97.5 F L 01/10/24 14:00 Pulse 65 01/10/24 14:00 Resp 17 01/10/24 14:00 BP 123/58 01/10/24 14:00 Pulse Ox 93 L 01/10/24 14:00 FiO2 Intake & Output 01/09/24 01/10/24 01/10/24 18:59 06:59 18:59 Output Total 400 Balance -400 Output: Urine 400 Other: Voiding Method External Catheter # Voids 4 # Bowel Movements 1 - Labs CBC & Chem 7: 01/08/24 21:37 01/08/24 21:37 Assessment and Plan Time with Patient: Less than 30
[2024-01-10] MEDS: SODIUM CHLORIDE 0.9% 1,000 ML IV SCH (17:59)
--- NOTE | 2024-01-11 00:32 | XR ---
EXAMINATION TYPE: XR chest 1V portable DATE OF EXAM: 01/10/2024 CLINICAL HISTORY: Hypoxia TECHNIQUE: Single frontal view of the chest is obtained. COMPARISON: Chest x-ray October 18, 2015 FINDINGS: Low lung volumes are redemonstrated. There is no focal air space opacity, pleural effusion, or pneumothorax seen. The cardiac silhouette size is stable and within normal limits without sclero tic change in the thoracic aorta present. Surgical changes of the lumbar spine is partially imaged. IMPRESSION: Low lung volumes without suspicious acute pulmonary process.
[2024-01-11] MEDS: ONDANSETRON 4 MG/2 ML VIAL IVP PRN (08:26)
--- NOTE | 2024-01-11 18:14 | P.PN ---
Subjective Progress Note Date: 01/11/24 Patient is a pleasant female admitted after a mechanical fall, patient is unsure how she fell. Patient denies any syncopal episode. Patient is found to have nondisplaced fracture of the sacral mickie, nondisplaced fracture of the superior and inferior pubic rami. Patient is nonsurgical at this time. Physical therapy and Occupational Therapy were consulted patient was complaining of occasional palpitations. Patient still has some pain whenever she moves otherwise okay. 01/10/2024 Patient is evaluated today resting in bed. Patient has nondisplaced pubic fracture. Patient is pending PT and OT evaluation and possibly will need rehab on discharge. Patient is reporting no pain while at rest however is worried once she is up and ambulating with physical therapy what her pain level will be. She is urinating without difficulty. Had a bowel movement. 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 She is having low oxygen saturations but denying and shortness of breath and her lung sounds are equal and clear throu ghout. 01/11/2024 Patient is seen and evaluated in follow-up and patient is status post nondisplaced pubic fracture with generalized weakness. Awaiting PT/OT therapy evaluation as patient will likely need rehab on discharge. Orthopedics following evaluated the patient recommending conservative management and ECF for continued strength and mobility. Patient according to Medicare guidelines will require a 3-day hospitalization for ECF. Patient is tolerating oral intake with no reported nausea or vomiting we will discontinue IV fluids. Recommend physical therapy daily and up in the chair more often including with meals. Review of Systems Constitutional: Denied any fatigue denied any fever. Cardio vascular: denied any chest pain, palpitations Gastrointestinal: denied any nausea, vomiting, diarrhea Pulmonary: Denied any shortness of breath cough Neurologic denied any new focal deficits, continues with diffuse weakness and pain in the buttock area All inpatient medications were reviewed and appropriate changes in these medications as dictated in the interval history and assessment and plan. PHYSICAL EXAMINATION: GENERAL: The patient is alert and oriented x3, not in any acute distress. Well developed, well nourished. Elderly appearing, obese HEENT: Pupils are round and equally reacting to light. EOMI. No scleral icterus. No conjunctival pallor. Normocephalic, atraumatic. No pharyngeal erythema. No thyromegaly. CARDIOVASCULAR: S1 and S2 present. No murmurs, rubs, or gallops. PULMONARY: Chest is clear to auscultation, no wheezing or crackles. ABDOMEN: Soft, nontender, nondistended, normoactive bowel sounds. No palpable organomegaly. MUSCULOSKELETAL: Deferred to orthopedic surgery EXTREMITIES: No cyanosis, clubbing, or pedal edema. NEUROLOGICAL: Gross neurological examination did not reveal any focal deficits. Diffusely weak SKIN: No rashes. Assessment: -Mechanical fall and pelvic fracture: Continue with present pain medications considering her age we will try and avoid opiates patient is on Toradol Pepcid, [place], low-dose Dilaudid on as-needed basis along with GI prophylaxis. Orthopedics recommending conservative management and likely subacute rehab -Generalized deconditioning and fall, patient will need subacute rehabilitation placement -Hypertension patient is on 2 blood pressure medications but is well-controlled just on atenolol -History of DVT in the past and patient is presently not on any anticoagulation will be started on DVT prophylaxis with Lovenox DVT prophylaxis: As mentioned above Pending PT evaluation, ordered IS and will order a chest xray. Plan: Recommend working with physical therapy daily will monitor closely and await ECF acceptance. Patient will require 3 night hospitalization according to Medicare guidelines. Earliest discharge would be . Case management following and will arrange for discharge planning to ECF Encouraged oral intake and increased activity as tolerated. Encouraged sitting up in the chair with meals and more often Continue pain management and avoiding narcotics if possible as patient reports nausea. Continue with antinausea medications as needed. Patient was maintained on IV hydration and will discontinue. Follow-up labs ordered for a.m. The impression and plan of care has been dictated by Jovana Green, Nurse Practitioner as directed. Dr. Neelam MD I have performed a history and physical examination and medical decision making of this patient, discussed the same with the dictator, and agree with the dictators assessment and plan as written, documented as a scribe. Based on total visit time, I have performed more than 50% of this visit. Objective - Vital Signs Vital signs: Vital Signs Temp 98.0 F 01/11/24 07:14 Pulse 69 01/11/24 07:14 Resp 18 01/11/24 07:14 BP 138/72 04/08/24 07:14 Pulse Ox 95 01/11/24 07:14 FiO2 Intake & Output 01/10/24 01/11/24 01/11/24 18:59 06:59 18:59 Output Total 150 Balance -150 Output: Urine 150 Other: Voiding Method External Catheter # Voids 3 - Labs CBC & Chem 7: 01/08/24 21:37 01/08/24 21:37
[2024-01-11] MEDS: polyethylene glycoL 3350 17 GM POWD.PACK PO PRN (20:06)
[2024-01-12 11:02] LABS: BUN/Creat Ratio 21.55 Ratio (12.00-20.00); Blood Urea Nitrogen 23.7 mg/dL (9.0-27.0); Calcium 8.4 mg/dL (8.7-10.3); Carbon Dioxide 22.1 mmol/L (21.6-31.8); Chloride 107 mmol/L (96-109); Glucose 108 mg/dL (70-110); Potassium 4.7 mmol/L (3.5-5.5); Sodium 138 mmol/L (135-145)
[2024-01-12] MEDS ORDERED: bisacodyL 10 MG SUPP RECTAL PRN (13:38)
[2024-01-12] MEDS: SENNOSIDES 8.6 MG TAB PO SCH (15:28)
--- NOTE | 2024-01-12 20:17 | P.PN ---
Subjective Progress Note Date: 01/12/24 Patient is a pleasant female admitted after a mechanical fall, patient is unsure how she fell. Patient denies any syncopal episode. Patient is found to have nondisplaced fracture of the sacral mickie, nondisplaced fracture of the superior and inferior pubic rami. Patient is nonsurgical at this time. Physical therapy and Occupational Therapy were consulted patient was complaining of occasional palpitations. Patient still has some pain whenever she moves otherwise okay. 01/10/2024 Patient is evaluated today resting in bed. Patient has nondisplaced pubic fracture. Patient is pending PT and OT evaluation and possibly will need rehab on discharge. Patient is reporting no pain while at rest however is worried once she is up and ambulating with physical therapy what her pain level will be. She is urinating without difficulty. Had a bowel movement. 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 She is having low oxygen saturations but denying and shortness of breath and her lung sounds are equal and clear throu ghout. 01/11/2024 Patient is seen and evaluated in follow-up and patient is status post nondisplaced pubic fracture with generalized weakness. Awaiting PT/OT therapy evaluation as patient will likely need rehab on discharge. Orthopedics following evaluated the patient recommending conservative management and ECF for continued strength and mobility. Patient according to Medicare guidelines will require a 3-day hospitalization for ECF. Patient is tolerating oral intake with no reported nausea or vomiting we will discontinue IV fluids. Recommend physical therapy daily and up in the chair more often including with meals. 01/12/2024 Patient is seen in follow-up with no acute overnight issues noted. Patient appears somewhat frustrated on exam as she reports she has not been getting up and much or working with much of physical therapy. Discussed with the patient at length that continued PT/OT therapy is much more aggressive and at least 2 to 3 hours daily at an ECF and hospital PT is more for evaluation and ongoing assessments. Patient is afebrile with no reported chest pain or shortness of breath. Patient reports she has not had a bowel movement but is passing gas. Will add bowel regimen and as needed suppository. Encouraged limiting narcotic use. Case management following and arranging for discharge planning. Patient will require 3 night hospitalization according to Medicare guidelines. Review of Systems Constitutional: Denied any fatigue denied any fever. Cardio vascular: denied any chest pain, palpitations Gastrointestinal: denied any nausea, no vomiting, no diarrhea, reports passing gas but no bowel movement as of yet Pulmonary: Denied any shortness of breath cough Neurologic denied any new focal deficits, continues with diffuse weakness and pain in the buttock area, patient reports pain is manageable All inpatient medications were reviewed and appropriate changes in these medications as dictated in the interval history and assessment and plan. PHYSICAL EXAMINATION: GENERAL: The patient is alert and oriented x3, not in any acute distress. Slightly anxious, well developed, well nourished. Elderly appearing, obese HEENT: Pupils are round and equally reacting to light. EOMI. No scleral icterus. No conjunctival pallor. Normocephalic, atraumatic. No pharyngeal erythema. No thyromegaly. CARDIOVASCULAR: S1 and S2 present. No murmurs, rubs, or gallops. PULMONARY: Chest is clear to auscultation, no wheezing or crackles. ABDOMEN: Soft, nontender, nondistended, normoactive bowel sounds. No palpable organomegaly. MUSCULOSKELETAL: Deferred to orthopedic surgery EXTREMITIES: No cyanosis, clubbing, or pedal edema. NEUROLOGICAL: Gross neurological examination did not reveal any focal deficits. Diffusely weak SKIN: No rashes. Assessment: -Mechanical fall and pelvic fracture: Continue with present pain medications considering her age we will try and avoid opiates patient is on Toradol Pepcid, [place], low-dose Dilaudid on as-needed basis along with GI prophylaxis. Orthopedics recommending conservative management and likely subacute rehab -Generalized deconditioning and fall, patient will need subacute rehabilitation placement for continued PT/OT therapy -Hypertension patient is on 2 blood pressure medications but is well-controlled just on atenolol -History of DVT in the past and patient is presently not on any anticoagulation, continue DVT prophylaxis with Lovenox DVT prophylaxis: As mentioned above Plan: Recommend working with physical therapy daily will monitor closely and await ECF acceptance. Patient will require 3 night hospitalization according to Medicare guidelines. Earliest discharge would be . Case management following and will arrange for discharge planning to ECF Encouraged oral intake and increased activity as tolerated. Encouraged sitting up in the chair with meals and more often Continue pain management and avoiding narcotics if possible as patient reports nausea. Continue with antinausea medications as needed. Continue with bowel regimen and will add stool softeners along with as needed suppository as patient reports she is passing gas but has not had a bowel movement Encouraged oral intake. Encouraged patient to be sitting up in the chair with meals The impression and plan of care has been dictated by Jovana Green, Nurse Practitioner as directed. Dr. Neelam MD I have performed a history and physical examination and medical decision making of this patient, discussed the same with the dictator, and agree with the dictators assessment and plan as written, documented as a scribe. Based on total visit time, I have performed more than 50% of this visit. Objective - Vital Signs Vital signs: Vital Signs Temp 97.8 F 01/12/24 07:58 Pulse 63 01/12/24 07:58 Resp 18 01/12/24 07:58 BP 123/68 01/12/24 07:58 Pulse Ox 96 01/12/24 07:58 FiO2 Intake & Output 01/11/24 01/12/24 01/12/24 18:59 06:59 18:59 Output Total 600 350 Balance -600 -350 Output: Urine 600 350 Other: Voiding Method External Catheter External Catheter - Labs CBC & Chem 7: 01/08/24 21:37 01/12/24 06:41
[2024-01-13 08:42] LABS: Basophils % (A) 1 %; Eosinophils # (A) 0.2 k/uL (0-0.7); Eosinophils % (A) 3 %; HCT 38.9 % (34.0-46.0); HGB 12.5 gm/dL (11.4-16.0); Lymphocytes # (A) 1.1 k/uL (1.0-4.8); Lymphocytes % (A) 16 %; MCH 31.3 pg (25.0-35.0); MCHC 32.1 g/dL (31.0-37.0); MCV 97.5 fL (80.0-100.0); Mean Platelet Volume 8.8; Monocytes # (A) 0.4 k/uL (0-1.0); Monocytes % (A) 6 %; Neutrophils # (A) 4.6 k/uL (1.3-7.7); Neutrophils % (A) 72 %; Platelet Count 129 k/uL (150-450); RBC 3.99 m/uL (3.80-5.40); WBC 6.4 k/uL (3.8-10.6)
[2024-01-13 08:52] LABS: African American GFR (CKD) 64 (>60 ml/min/1.73 sqM); Anion Gap 6 mmol/L; Blood Urea Nitrogen 20 mg/dL (7-17); Calcium 8.9 mg/dL (8.4-10.2); Carbon Dioxide 21 mmol/L (22-30); Chloride 107 mmol/L (98-107); Glucose 122 mg/dL (74-99); Magnesium 1.9 mg/dL (1.6-2.3); Non-African American GFR(CKD) 55 (>60 ml/min/1.73 sqM); Potassium 4.4 mmol/L (3.5-5.1); Sodium 134 mmol/L (137-145)
[2024-01-13 15:21] VITALS: TEMP 97.8
--- NOTE | 2024-01-14 05:58 | P.PN ---
Subjective Progress Note Date: 01/13/24 Patient is a pleasant female admitted after a mechanical fall, patient is unsure how she fell. Patient denies any syncopal episode. Patient is found to have nondisplaced fracture of the sacral mickie, nondisplaced fracture of the superior and inferior pubic rami. Patient is nonsurgical at this time. Physical therapy and Occupational Therapy were consulted patient was complaining of occasional palpitations. Patient still has some pain whenever she moves otherwise okay. 01/10/2024 Patient is evaluated today resting in bed. Patient has nondisplaced pubic fracture. Patient is pending PT and OT evaluation and possibly will need rehab on discharge. Patient is reporting no pain while at rest however is worried once she is up and ambulating with physical therapy what her pain level will be. She is urinating without difficulty. Had a bowel movement. 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 She is having low oxygen saturations but denying and shortness of breath and her lung sounds are equal and clear throu ghout. 01/11/2024 Patient is seen and evaluated in follow-up and patient is status post nondisplaced pubic fracture with generalized weakness. Awaiting PT/OT therapy evaluation as patient will likely need rehab on discharge. Orthopedics following evaluated the patient recommending conservative management and ECF for continued strength and mobility. Patient according to Medicare guidelines will require a 3-day hospitalization for ECF. Patient is tolerating oral intake with no reported nausea or vomiting we will discontinue IV fluids. Recommend physical therapy daily and up in the chair more often including with meals. 01/12/2024 Patient is seen in follow-up with no acute overnight issues noted. Patient appears somewhat frustrated on exam as she reports she has not been getting up and much or working with much of physical therapy. Discussed with the patient at length that continued PT/OT therapy is much more aggressive and at least 2 to 3 hours daily at an ECF and hospital PT is more for evaluation and ongoing assessments. Patient is afebrile with no reported chest pain or shortness of breath. Patient reports she has not had a bowel movement but is passing gas. Will add bowel regimen and as needed suppository. Encouraged limiting narcotic use. Case management following and arranging for discharge planning. Patient will require 3 night hospitalization according to Medicare guidelines. 01/13/2024 Patient is seen in follow-up today currently sitting up in the chair reports pain is somewhat manageable although more intense when working with physical therapy. Patient reports was up and working with them and continues with weakness although agreeable to work with daily. Patient reports is passing gas but has not had a bowel movement as of yet. Continue bowel regimen as well as suppository as needed. Patient not eating very much and reports has not much of an appetite will add Ensure supplements. Patient is afebrile denies chest pain or shortness of breath. No reported nausea or vomiting noted. Plan is for ECF at [facility] after 3 night hospitalization according to Medicare guidelines. Discharge planning in 24 hours Review of Systems Constitutional: Denied any fatigue denied any fever. Cardio vascular: denied any chest pain, palpitations Gastrointestinal: denied any nausea, no vomiting, no diarrhea, reports passing gas but no bowel movement as of yet Pulmonary: Denied any shortness of breath cough Neurologic denied any new focal deficits, continues with diffuse weakness and pain in the buttock area, patient reports pain is manageable All inpatient medications were reviewed and appropriate changes in these medications as dictated in the interval history and assessment and plan. PHYSICAL EXAMINATION: GENERAL: The patient is alert and oriented x3, not in any acute distress. Slightly anxious, well developed, well nourished. Elderly appearing, obese HEENT: Pupils are round and equally reacting to light. EOMI. No scleral icterus. No conjunctival pallor. Normocephalic, atraumatic. No pharyngeal erythema. No thyromegaly. CARDIOVASCULAR: S1 and S2 present. No murmurs, rubs, or gallops. PULMONARY: Chest is clear to auscultation, no wheezing or crackles. ABDOMEN: Soft, nontender, nondistended, normoactive bowel sounds. No palpable organomegaly. MUSCULOSKELETAL: Deferred to orthopedic surgery EXTREMITIES: No cyanosis, clubbing, or pedal edema. NEUROLOGICAL: Gross neurological examination did not reveal any focal deficits. Diffusely weak SKIN: No rashes. Assessment: -Mechanical fall and pelvic fracture: Continue with present pain medications considering her age we will try and avoid opiates patient is on Toradol Pepcid, [place], low-dose Dilaudid on as-needed basis along with GI prophylaxis. Orthopedics recommending conservative management and likely subacute rehab -Generalized deconditioning and fall, patient will need subacute rehabilitation placement for continued PT/OT therapy -Hypertension patient is on 2 blood pressure medications but is well-controlled just on atenolol -History of DVT in the past and patient is presently not on any anticoagulation, continue DVT prophylaxis with Lovenox -Obesity with a BMI of 30.8 -DVT prophylaxis: As mentioned above -GI prophylaxis -Full code Plan: Recommend working with physical therapy daily will monitor closely and await 3 night hospitalization according to Medicare guidelines. Earliest discharge would be . Patient plans on going to [facility] and reports her is currently there. Case management following and will arrange for discharge pl anning to [facility] Encouraged oral intake and increased activity as tolerated. Encouraged sitting up in the chair with meals and more often. Patient not eating much and will add supplements including Ensure Continue pain management and avoiding narcotics if possible. Continue with antinausea medications as needed. Continue with bowel regimen and will continue stool softeners along with as needed suppository as patient reports she is passing gas but has not had a bowel movement Likely discharge planning in 24 hours The impression and plan of care has been dictated by Jovana Green, Nurse Practitioner as directed. Dr. Neelam MD I have performed a history and physical examination and medical decision making of this patient, discussed the same with the dictator, and agree with the dictators assessment and plan as written, documented as a scribe. Based on total visit time, I have performed more than 50% of this visit. Objective - Vital Signs Vital signs: Vital Signs Temp 97.7 F 01/13/24 07:50 Pulse 95 01/13/24 07:50 Resp 14 01/13/24 01:27 BP 149/69 01/13/24 07:50 Pulse Ox 95 01/13/24 07:50 FiO2 Intake & Output 01/12/24 01/13/24 01/13/24 18:59 06:59 18:59 Output Total 770 300 650 Balance -770 -300 -650 Output: Urine 770 300 650 Other: Voiding Method Bedside Commode Diaper External Catheter # Voids 2 # Bowel Movements 1 - Labs CBC & Chem 7: 01/13/24 08:22 01/13/24 08:22 Labs: Abnormal Lab Results - Last 24 Hours (Table) 01/12/24 01/13/24 01/13/24 Range/Units 06:41 08:22 08:22 Plt Count 129 L (150-450) k/uL Sodium 134 L (137-145) mmol/L Carbon Dioxide 21 L (22-30) mmol/L BUN 20 H (7-17) mg/dL Est GFR (CKD-EPI) 49 L (>=60) BUN/Creatinine Ratio 21.55 H (12.00-20.00) Ratio Glucose 122 H (74-99) mg/dL Calcium 8.4 L (8.7-10.3) mg/dL
[2024-01-14 08:05] VITALS: BP 147/67; PULSE 74; RESP 16
--- NOTE | 2024-01-14 11:00 | P.DS ---
Providers Date of admission: 01/11/24 08:39 Expected date of discharge: 01/14/24 Attending physician: Desiree Chen Consults: 01/08/24 21:41 Consult Physician Urgent Consulting Provider: Dylan Rodriguez Consult Reason/Comments: Left superior and inferior pubic rami fractures Do you want consulting provider notified?: Yes Primary care physician: En Bautista Hospital Course: Final diagnosis -Mechanical fall and pelvic fracture, continuing with conservative management outpatient follow-up with orthopedics -Generalized deconditioning and fall -Hypertension history -History of DVT in the past and patient is presently not on any anticoagulation, continue DVT prophylaxis with Lovenox -Obesity with a BMI of 30.8 -DVT prophylaxis -GI prophylaxis -Full code Discharge disposition Patient is being discharged in a stable condition with guarded prognosis to [facility]. Patient will follow-up with Dr. En Bautista in the outpatient setting upon discharge. Patient is to continue conservative management and pain medications along with bowel regimen and outpatient follow- up with orthopedics as scheduled. Total time taken is greater than 35 minutes. Hospital course This is a 88-year-old female who was recently admitted with mechanical fall while in her garage getting out of the car and felt she may have had too many things in her hand and normally uses a cane and lost balance and took a fall. Patient does have a pelvic fracture and evaluated by orthopedics recommending conservative management. Patient seen and evaluated by physical therapy and would recommend rehab and patient is agreeable. Patient required 3 night hospitalization according to Medicare guidelines to go to [facility]. Please refer to other consultation notes for further HPI. Patient will be going to [facility] and has been accepted today. Currently no reports of chest pain, shortness of breath, or palpitations. Patient is afebrile. No reports of nausea or vomiting and patient is tolerating diet. Patient not eating much with not much of an appetite recommend Ensure supplements 3 times daily between meals. Home medications have been resumed and recommend monitoring blood pressure as losartan is currently on hold. Patient will be discharged to [facility] today. Physical exam: Gen: This is a 88-year-old female who is awake, alert and oriented x 3, well- developed, well-nourished, obese HEENT: Head is atraumatic, normocephalic. Pupils equal, round. Sclerae is anicteric. NECK: Supple. No JVD. No lymphadenopathy. No thyromegaly. LUNGS: Diminished breath sounds bilaterally otherwise clear to auscultation. No wheezes or rhonchi. No intercostal retractions. HEART: Regular rate and rhythm. No murmur. ABDOMEN: Soft. Obese. Bowel sounds are present. No masses. No tenderness. EXTREMITIES: No pedal edema. No calf tenderness. Mild nonpitting lower extremity edema bilaterally NEUROLOGICAL: Patient is awake, alert and oriented x3. Cranial nerves 2 through 12 are grossly intact. Diffusely weak Please refer to medication reconciliation sheet for a list of medications. The impression and plan of care has been dictated by Jovana Green, Nurse Practitioner as directed. Dr. Neelam MD I have performed a history and examination and MDM of this patient, discussed the same with the dictator, and agree with the dictator's assessment and plan as written ,documented as a scribe. Based on total visit time, I have performed more than 50% of the visit. Patient Condition at Discharge: Stable Plan - Discharge Summary Discharge Rx Participant: Yes New Discharge Prescriptions: New bisacodyL [Dulcolax] 10 mg RECTAL DAILY PRN suppositor PRN Reason: Constipation Enoxaparin [Lovenox] 40 mg SQ DAILY each Sennosides [Senokot] 8.6 mg PO BID tab Acetaminophen Tab [Tylenol] 650 mg PO Q6HR PRN tab PRN Reason: Fever And/ Or Pain polyethylene glycoL 3350 [Miralax] 17 gm PO DAILY PRN packet PRN Reason: Constipation HYDROcodone/APAP 5-325MG [[place] 5-325] 1 each PO Q4HR PRN #4 tab PRN Reason: Moderate Pain (Scale 4 To 6) Pantoprazole [Protonix] 40 mg PO AC-BRKFST tab Continue atenoloL [Tenormin] 25 mg PO DAILY Rosuvastatin [Crestor] 10 mg PO HS Aspirin EC [Ecotrin Low Dose] 81 mg PO HS Isosorbide Mononitrate ER [Imdur] 30 mg PO DAILY Biotin 2,500 mcg PO HS Discontinued hydroCHLOROthiazide 25 mg PO DAILY Losartan Potassium 100 mg PO DAILY Acetaminophen Tab [Tylenol Tab] 1,000 mg PO DAILY Discharge Medication List atenoloL [Tenormin] 25 mg PO DAILY 10/10/15 [History] Aspirin EC [Ecotrin Low Dose] 81 mg PO HS 01/08/24 [History] Biotin 2,500 mcg PO HS 01/08/24 [History] Isosorbide Mononitrate ER [Imdur] 30 mg PO DAILY 01/08/24 [History] Rosuvastatin [Crestor] 10 mg PO HS 01/08/24 [History] Acetaminophen Tab [Tylenol] 650 mg PO Q6HR PRN tab 01/14/24 [Rx] Enoxaparin [Lovenox] 40 mg SQ DAILY each 01/14/24 [Rx] HYDROcodone/APAP 5-325MG [[place] 5-325] 1 each PO Q4HR PRN #4 tab 01/14/24 [Rx] Pantoprazole [Protonix] 40 mg PO AC-BRKFST tab 01/14/24 [Rx] Sennosides [Senokot] 8.6 mg PO BID tab 01/14/24 [Rx] bisacodyL [Dulcolax] 10 mg RECTAL DAILY PRN suppositor 01/14/24 [Rx] polyethylene glycoL 3350 [Miralax] 17 gm PO DAILY PRN packet 01/14/24 [Rx] Follow up Appointment(s)/Referral(s): Danny Palomino PAC [PHYSICIAN LAYUP WORKER] - 02/03/24 1:40 pm (Please arrive at 1:30 for paperwork.) En Bautista MD [Primary Care Provider] - 1-2 days ([facility] please call for follow-up appointment.) Activity/Diet/Wound Care/Special Instructions: Patient is going to [facility] on [facility] [employer] Activity as tolerated Follow-up with orthopedics outpatient Follow-up with primary care provider on discharge Continue taking medications as prescribed Continue with bowel regimen when taking narcotics Continue with Ensure supplements 3 times daily between meals and encouraged oral intake Orthopedic discharge instructions: 1. Weight-bear as tolerated with walker 2. Utilize [id number] anti-inflammatories or Tylenol as needed for discomfort 3. Plan for [facility] at [facility] 3 weeks for x-ray and clinical evaluation Discharge Disposition: TRANSFER TO SNF/ECF
== END 2024-01-14 13:16 | DRG 536 ==
LOC: EC 18:24 → 4SSUR 21:53 → OBSVTOIN 01-11 08:39
PROVIDERS: ADMIT Hospitalist; ATTEND Hospitalist
DX: S32.592A Other specified fracture of left pubis, initial encounter for closed fracture (principal); S32.10XA Unspecified fracture of sacrum, initial encounter for closed fracture; E66.9 Obesity, unspecified; Z68.30 Body mass index [BMI] 30.0-30.9, adult; E78.5 Hyperlipidemia, unspecified; I10 Essential (primary) hypertension; M19.90 Unspecified osteoarthritis, unspecified site; Z86.718 Personal history of other venous thrombosis and embolism; Z87.01 Personal history of pneumonia (recurrent); M19.012 Primary osteoarthritis, left shoulder; W18.30XA Fall on same level, unspecified, initial encounter; Y92.009 Unspecified place in unspecified non-institutional (private) residence as the place of occurrence of the external cause; Z79.899 Other long term (current) drug therapy; Z90.710 Acquired absence of both cervix and uterus; Z96.642 Presence of left artificial hip joint; Z96.652 Presence of left artificial knee joint; Z88.1 Allergy status to other antibiotic agents; Z88.8 Allergy status to other drugs, medicaments and biological substances; Z98.42 Cataract extraction status, left eye; Z98.41 Cataract extraction status, right eye
CPT/HCPCS: 36415; 71045; 72192; 73502; 80048; 80053; 83735; 85025; 96374; 96375; 99285